=== PATIENT | female | born 1980 | race Caucasian/White ===

== ENCOUNTER → 2017-03-04 20:15 | Emergency (ER) ==
[~2017-03-04 20:15] MED LIST: BACTRIM DS TAB1 EACH; CELEXA; HYDROCODON-ACE1 EAC7
== END | disposition home or self-care (01) ==
LOC: SED 20:15
DX: Z53.21 Procedure and treatment not carried out due to patient leaving prior to being seen by health care provider (principal)

== ENCOUNTER 2017-04-18 17:01 | Emergency (ER) | payer OTHER ==
[2017-04-18] MEDS ORDERED: HYDROCODON-ACE1 EAC7 (17:15)
[2017-04-18] MEDS ORDERED: BACTRIM DS TAB1 EACH (17:15)
[2017-04-18] MEDS ORDERED: CELEXA (17:15)
== END 2017-04-18 17:56 | disposition home or self-care (01) ==
LOC: SED 17:01
DX: Z48.00 Encounter for change or removal of nonsurgical wound dressing (principal); Z79.899 Other long term (current) drug therapy; F17.200 Nicotine dependence, unspecified, uncomplicated
CPT/HCPCS: 99282